=== PATIENT | male | born 1965 | race Caucasian/White ===

== ENCOUNTER 2016-08-17 16:10 | Inpatient (IN) | payer BC ==
[~2016-08-17] VITALS: Ht 167.6 cm; Wt 87.1 kg
[2016-08-17 16:15] VITALS: BP_SYST 148
--- NOTE | 2016-08-17 16:25 | NUR ---
Patient to ER bed 3 to gown for evaluation. Side rails up. Report given to Juan CELESTE.
--- NOTE | 2016-08-17 16:30 | NUR ---
Pt states having intermittent abdominal pain in epigastric area, states abd pain worsened today after attempting to eat granola bar. Pt states pain 8/10, denies diarrhea, vomiting, states having nausea since 1200 today. Pt states taking opiate medications due to prior back surgeries. Pt states pain worsens on palpation. Abd round, distended, no structural abnormalities noted on inspection. Pt denies any other complaints.
--- NOTE | 2016-08-17 16:31 | NUR ---
CHARLIE Morgan RN at bedside examining patient.
[2016-08-17] MEDS ORDERED: PANTOPRAZOLE SODIUM 40 MG/VIAL (PROTONIX) IVP ONE (16:45)
[2016-08-17] MEDS ORDERED: ONDANSETRON HCL 4 MG/2 ML VIAL IVP ONE (16:45)
[2016-08-17] MEDS ORDERED: NACL 0.9% 500 ML IV ONE (16:45)
[2016-08-17] MEDS ORDERED: MAG HYDROX/AL HYDROX/SIMETH 30 ML, LIDOCAINE VISCOUS 2% 15ML (PO) 10 ML, BELLADONNA ALK... PO ONE ×3 (16:45)
[2016-08-17] MEDS ORDERED: MAGNESIUM CITRATE 300 ML ORAL SOLUTION PO ONE (17:00)
--- NOTE | 2016-08-17 17:46 | NUR ---
Patient states does not want Mylanta in GI cocktail, Cathy CANO informed, stated okay. Will return to pharmacy.
[2016-08-17 18:29] LABS: BASOPHILS % (AUTO) 0.2 % (0.0-2.0); EOSINOPHILS # (AUTO) 0.2 K/uL (0.0-0.4); EOSINOPHILS % (AUTO) 2.4 % (0.0-4.0); HEMATOCRIT 37.8 % (36-54); HEMOGLOBIN 12.6 g/dL (14.0-18.0); LYMPHOCYTES # (AUTO) 1.7 K/uL (1.0-5.5); LYMPHOCYTES % (AUTO) 20.4 % (20.5-51.5); MEAN CORPUSCULAR HEMOGLOBIN 28 pg (27-31); MEAN CORPUSCULAR HGB CONC 33 % (32-36); MEAN CORPUSCULAR VOLUME 84 fL (79.0-98.0); MONOCYTES # (AUTO) 0.4 K/uL (0.0-1.0); MONOCYTES % (AUTO) 4.3 % (1.7-9.3); NEUTROPHILS # (AUTO) 6.2 K/uL (1.8-7.7); NEUTROPHILS % (AUTO) 72.7 % (40.0-70.0); PLATELET COUNT (AUTO) 276 K/uL (130-430); RED BLOOD CELL COUNT(AUTO) 4.51 MIL/uL (4.2-6.2); RED CELL DISTRIBUTION WIDTH 13.2 % (9.0-15.0); WHITE BLOOD COUNT (AUTO) 8.5 K/uL (4.8-10.8)
--- NOTE | 2016-08-17 18:30 | NUR ---
pt stable, no distress noted.
[2016-08-17 18:48] LABS: CALCIUM 8.8 mg/dL (8.4-11.0); CREATININE 0.83 mg/dL (0.55-1.30); POTASSIUM 3.8 mmol/L (3.5-5.1)
[2016-08-17 18:56] LABS: ALBUMIN 3.5 g/dL (3.4-4.8); TOTAL BILIRUBIN 0.2 mg/dL (0.0-1.0); TOTAL PROTEIN, SERUM 7.1 g/dL (6.4-8.3)
[2016-08-17] MEDS ORDERED: MORPHINE 4 MG/ML INJ. SYRINGE IVP ONE (19:15)
[2016-08-17] MEDS ORDERED: ASPIRIN 81 MG TAB.CHEW PO ONE (20:00)
[2016-08-17] MEDS ORDERED: HYDR-3698 PO (20:01)
[2016-08-17] MEDS ORDERED: ASPI81TA2 PO (20:01)
[2016-08-17] MEDS ORDERED: HYDR-2472 PO (20:01)
[2016-08-17] MEDS ORDERED: PRAM0.253 PO (20:01)
[2016-08-17] MEDS ORDERED: DIPH25CA83 PO (20:01)
[2016-08-17] MEDS ORDERED: GABA-776 PO (20:01)
[2016-08-17] MEDS ORDERED: DOCU250C PO (20:01)
[2016-08-17] MEDS ORDERED: DULO60CA41 PO (20:01)
[2016-08-17] MEDS ORDERED: CAT.1 PO (20:01)
[2016-08-17] MEDS ORDERED: OXYC27CA PO (20:01)
[2016-08-17] MEDS ORDERED: BACL20TA PO (20:01)
[2016-08-17] MEDS ORDERED: MONT10TA25 PO (20:01)
[2016-08-17] MEDS ORDERED: MORPHINE 2 MG/ML INJ. SYRINGE IVP ONE (20:15)
--- NOTE | 2016-08-17 20:32 | NUR ---
ADMISSION NOTE Received patient from ER via viji, received report from Jennifer CELESTE. Patient admitted with diagnosis of chest pain. Patient oriented to hospital routine, call light, toileting and safety-patient verbalized understanding.
--- NOTE | 2016-08-17 20:32 | NUR ---
Patient will be admitted to care of Dr. Desai. Admitted to Telemetry unit. Will go to room 108 A. Belongings list completed. Summary report printed. Report will be given at bedside to BOOKER Cole.
--- NOTE | 2016-08-17 20:35 | NUR ---
initial nursing notes: Patient awake in bed. Patient has an IV access on the right forearm. Patient denies of having pain at this time.
--- NOTE | 2016-08-17 20:38 | NUR ---
CONSULTATION PAGED REASON FOR CONSULTATION:CHEST PAIN WAS CONSULT CALLED?Y PERSON WHO WAS NOTIFIED:[facility] CONSULTING PHYSICIAN:DARWIN LÓPEZ (SARI YBARRA MOLASSES AND CARAMEL OPERATOR) REVENUE CYCLE ADMINISTRATOR SPECIALTY:CARDIO REVENUE CYCLE ADMINISTRATOR PHONE NUMBER:[phone]
[2016-08-17 21:24] VITALS: BP_SYST 151
[2016-08-17] MEDS ORDERED: MORPHINE 2 MG/ML INJ. SYRINGE IVP PRN (21:45)
--- NOTE | 2016-08-17 22:35 | NUR ---
nursing rounds: Patient received pain medication for epigastric pain. Medication was effective. Patient is resting on the chair. Patient states that he wants to see a case monitor in the morning to discuss about signing a document to make his status "DNR".
[2016-08-18 00:25] VITALS: BP_SYST 128
--- NOTE | 2016-08-18 00:35 | NUR ---
nursing rounds: Patient is resting on the chair. Patient states that laying down in bed makes his epigastric pain worse.
[2016-08-18] MEDS: MORPHINE 2 MG/ML INJ. SYRINGE IVP PRN ×7 (01:30→21:38)
--- NOTE | 2016-08-18 02:35 | NUR ---
nursing rounds: Patient received pain medication for epigastric pain. Patient stated that the medication was effective.
[2016-08-18 04:00] VITALS: BP_SYST 128
--- NOTE | 2016-08-18 04:35 | NUR ---
nursing rounds: Patient is resting on the chair. Patient has no shortness of breath.
--- NOTE | 2016-08-18 06:10 | NUR ---
nursing rounds: Patient received another dose of pain medication for epigastric pain. Patient stated that the medication was effective.
--- NOTE | 2016-08-18 07:42 | NUR ---
closing nursing notes: Patient is awake, alert and oriented X 4. Patient is in no acute respiratory distress. No episodes of fall and no injuries throughout the shift supervisor film processing. Provided nursing report to incoming morning shift nurse, BOOKER Bahena, at patient's bedside.
[2016-08-18] MEDS ORDERED: SUCRALFATE 1 GM TABLET PO ONE (08:15)
--- NOTE | 2016-08-18 08:35 | NUR ---
GI CONSULT Spoke with Faina regarding request for consultation with Dr. Alonzo ([phone]) for reason: abdominal pain.
--- NOTE | 2016-08-18 09:30 | NUR ---
Call from Dr Alonzo consent for EGD. and keep NPO.
[2016-08-18] MEDS: ASPIRIN 325 MG TABLET (ECOTRIN) PO SCH (09:36)
[2016-08-18] MEDS: PANTOPRAZOLE SODIUM 40 MG/VIAL (PROTONIX) IVP SCH ×3 (09:36→21:02)
--- NOTE | 2016-08-18 09:50 | NUR ---
Notified dr Doe who was still at the station re pts arm turning red after morphine administration ivp. to order Benadryl.
--- NOTE | 2016-08-18 09:57 | NUR ---
Dr Alonzo paged re patients concern about being resistant to narcotics and is requesting anesthesiology to be present for EGD. Waiting for call back. Addendum: 08/18/16 at 1058 by Shruti Guerrero RN dR Alonzo cALLED BACK AND NOTIFIED HIM OF THE PATIENTS CONCERN RE SEDATION.
[2016-08-18] MEDS: DIPHENHYDRAMINE INJ 50 MG/ML VIAL IVP PRN (10:20)
[2016-08-18 12:21] VITALS: BP_SYST 142
--- NOTE | 2016-08-18 12:26 | NUR ---
Rounds Patient resting in chair, abd pain 6/1o. PRN medication administered. No redness noted on arm this time. call light in reach
--- NOTE | 2016-08-18 14:15 | NUR ---
Dr Sparks at bedside. Patient gave informed consent for anesthesia as well as the EGD after speaking to .
--- NOTE | 2016-08-18 14:34 | NUR ---
Patient transported out to EGD under general anesthesia
[2016-08-18] MEDS ORDERED: SIMETHICONE 40 MG/0.6 ML ML ONE (14:52)
--- NOTE | 2016-08-18 15:55 | NUR ---
PATIENT BACK TO ROOM. RECEIVED REPORT FROM HUSSEIN CELESTE. Patient states everything went "so smoothly, I just wish i would have stayed comatose a little bit longer. " Patient complaining of pain 11/05. Will reassess. VSS
[2016-08-18 16:00] VITALS: BP_SYST 153
--- NOTE | 2016-08-18 16:25 | NUR ---
Patient calling for pain medication. 09/05 at this time says its is still hurting since post OP, though not as bad. Pt requesting his morphine IVP. Pt placed back on the monitor as the leads were off.
[2016-08-18] MEDS: SUCRALFATE 1 GM TABLET PO SCH (17:58)
--- NOTE | 2016-08-18 19:39 | NUR ---
PAIN PT. A/OX4, VITAL SIGNS STABLE, PT. IS SITTING UP IN CHAIR AT THIS TIME, PT. C/O GENERALIZED ABDOMINAL ACHING PAIN RATED 6/10, MORPHINE 2 MG IVP GIVEN ORDERED, UPDATED WITH PLAN OF CARE, ENCOURAGED PT. TO USE CALL LIGHT FOR ASSISTANCE, CALL LIGHT WITHIN REACH.
[2016-08-18 20:05] VITALS: BP_SYST 140
--- NOTE | 2016-08-18 21:10 | NUR ---
DR. JAMES SPOKE WITH DR. JAMES, MADE AWARE PT. IS ASKING IF HE IS STILL GOING TO HAVE A CT ABDOMEN FOR TOMORROW, DR. JAMES SAID YES AND GAVE ORDERS FOR CT ABDOMEN AND PELVIS WITH CONTRAST AND NPO AFTER MIDNIGHT, PT. ALSO ASKED FOR PROBIOTIC AND ANTI NAUSEA MEDICATION, DR. JAMES ORDERED CULTURELLE 1 CAP BID AND ZOFRAN 4 MG IVP Q6P.
[2016-08-18] MEDS: LACTOBACILLUS RHAMNOSUS GG 1 CAP CAPSULE PO SCH (21:38)
--- NOTE | 2016-08-18 23:05 | NUR ---
PAGED PAGED KENNY EAGLE AT [phone] SPOKE WITH TEDDY.
--- NOTE | 2016-08-18 23:09 | NUR ---
DR. KANG SPOKE WITH DR. KANG, MADE AWARE PT. IS COMPLAINING OF SEVERE EPIGASTRIC PAIN RATED 9/10, RECEIVED ORDER FOR MORPHINE 3 MG IVP Q4P FOR SEVERE PAIN.
[2016-08-18] MEDS ORDERED: MORPHINE 4 MG/ML INJ. SYRINGE IVP PRN (23:30)
[2016-08-19 00:08] VITALS: BP_SYST 128
--- NOTE | 2016-08-19 01:00 | NUR ---
RN ROUNDS PT. RESTING QUIETLY, VITAL SIGNS STABLE, NO DISTRESS NOTED, NO S/S OF PAIN OR DISCOMFORT, CALL LIGHT WITHIN REACH.
[2016-08-19] MEDS: MORPHINE 2 MG/ML INJ. SYRINGE IVP PRN (01:43)
--- NOTE | 2016-08-19 03:00 | NUR ---
RN ROUNDS PT. RESTING QUIETLY, VITAL SIGNS STABLE, NO DISTRESS NOTED, NO S/S OF PAIN OR DISCOMFORT, CALL LIGHT WITHIN REACH.
--- NOTE | 2016-08-19 03:26 | NUR ---
PAGED PAGED KENNY EAGLE AT [phone] SPOKE WITH DOREEN.
--- NOTE | 2016-08-19 03:37 | NUR ---
DR. KANG PAGED AND SPOKE WITH DR. KANG, PT. IS COMPLAINING THAT HIS PAIN IS "GETTING INCREASINGLY WORSE FROM LAST NIGHT", PT. ALSO STATED "MORPHINE IS NOT WORKING, I WANT MORPHINE LOCAL INTERMODAL TRUCK DRIVER WITH A BASAL RATE OF 2 MG, AND DR. KANG CAN FILL OUT THE REST. I ALSO WANT A STAT CXR FOR MY HISTORY OF ASTHMA." DR. KANG SAID NO TO THE LOCAL INTERMODAL TRUCK DRIVER MORPHINE, AND ORDERED DILAUDID 1 MG IVP Q3P FOR MODERATE PAIN 4-6, AND DILAUDID 2 MG IVP Q3P FOR SEVERE PAIN 7-10, DISCONTINUE ALL ORDERS FOR MORPHINE. DR. KANG ALSO ORDERED STAT CXR AND CONSULT WITH DR. VERA FOR PAIN MANAGEMENT.
--- NOTE | 2016-08-19 03:37 | NUR ---
CONSULTATION PAGED REASON FOR CONSULTATION:CHEST PAIN WAS CONSULT CALLED?Y PERSON WHO WAS NOTIFIED:[facility] CONSULTING PHYSICIAN:JEF ESCALANTE BAROMETERS CALIBRATOR SPECIALTY:PAIN MANAGMENT BAROMETERS CALIBRATOR PHONE NUMBER:[phone]
[2016-08-19] MEDS ORDERED: HYDROmorphone 2 MG/ML VIAL ONE (04:10)
--- NOTE | 2016-08-19 05:02 | NUR ---
RN ROUNDS PT. RESTING QUIETLY, VITAL SIGNS STABLE, NO DISTRESS NOTED, NO S/S OF PAIN OR DISCOMFORT, CALL LIGHT WITHIN REACH.
[2016-08-19] MEDS: HYDROmorphone 1 MG INJ. 1 MG/ML AMPUL IVP PRN ×2 (05:56→21:28)
--- NOTE | 2016-08-19 05:56 | NUR ---
PAIN PT. C/O GENERALIZED PAIN RATED 6/10, DILAUDID 1 MG IVP GIVEN ORDERED. VITAL SIGNS STABLE, CALL LIGHT WITHIN REACH.
[2016-08-19] MEDS: SUCRALFATE 1 GM TABLET PO SCH ×2 (06:32→17:51)
--- NOTE | 2016-08-19 06:45 | NUR ---
CLOSING NOTES PT. RESTING QUIETLY, NO DISTRESS NOTED, NO S/S OF PAIN OR DISCOMFORT. CALL LIGHT WITHIN REACH.
[2016-08-19 07:29] LABS: BILIRUBIN,DIRECT 0.2 mg/dL (0.0-0.3); TOTAL BILIRUBIN 0.4 mg/dL (0.0-1.0); TOTAL PROTEIN, SERUM 7.2 g/dL (6.4-8.3)
--- NOTE | 2016-08-19 07:50 | NUR ---
am rounds: patient sitting on the chair. report given by night nurse valorie. nothing per mouth and patient verbalized understanding.for ct scan of abdomen/pelvis with iv contrast today. pain level 4/10,instructed to call rn for pain meds if needed. stable.
[2016-08-19] MEDS ORDERED: DIATR MEGLU/DIATRIZ SOD 30 ML SOLUTION PO ONE (08:02)
[2016-08-19 08:11] VITALS: BP_SYST 150
[2016-08-19] MEDS: PANTOPRAZOLE SODIUM 40 MG/VIAL (PROTONIX) IVP SCH ×2 (08:13→20:40)
[2016-08-19] MEDS ORDERED: IOHEXOL 100 ML IV ONE (08:15)
[2016-08-19] MEDS: HYDROmorphone 2 MG/ML VIAL IVP PRN ×4 (08:28→17:51)
--- NOTE | 2016-08-19 08:42 | NUR ---
pain meds: c/o mid pressure pain ,radiating to the back,due iv pain meds given per request.
--- NOTE | 2016-08-19 09:17 | NUR ---
radiology: patient was brought to radiology by tech via wheelchair in stable condition.
--- NOTE | 2016-08-19 09:55 | NUR ---
rounds: patient sitting on the chair back from radiology. stable.
[2016-08-19] MEDS: LACTOBACILLUS RHAMNOSUS GG 1 CAP CAPSULE PO SCH ×2 (11:37→21:28)
[2016-08-19] MEDS: ASPIRIN 325 MG TABLET (ECOTRIN) PO SCH (11:37)
--- NOTE | 2016-08-19 11:43 | NUR ---
PAIN MEDS: C/O MID RADIATING TO THE BACK PAIN AND DUE IV PAIN MEDS GIVEN PER REQUEST.
[2016-08-19 12:14] VITALS: BP_SYST 135
--- NOTE | 2016-08-19 13:41 | NUR ---
ROUNDS; PATIENT AMBULATING IN THE ROOM. FELT A LITTLE BETTER,TOLERATED THE APPLE JUICE.
[2016-08-19] MEDS: ONDANSETRON HCL 4 MG/2 ML VIAL IVP PRN ×2 (14:54→20:40)
--- NOTE | 2016-08-19 14:57 | NUR ---
pain meds: c/o generalized pain and due iv pain meds given per request.due iv Zofran given per pt's request.
--- NOTE | 2016-08-19 15:15 | NUR ---
rounds: resting. stable.
--- NOTE | 2016-08-19 16:12 | NUR ---
Social Service Note: Pt referred to social media developer by casework supervisor; BAR ASSISTANT met with pt at bedside. Please see psychosocial assessment for further information. Pt was provided with POLST form, advanced directive, and caregiving brochures to assist with caring for pt's parents at home. BAR ASSISTANT will remain available for support and will follow up as needed.
[2016-08-19 16:37] VITALS: BP_SYST 143
--- NOTE | 2016-08-19 17:59 | NUR ---
PAIN MEDS: C/O MID ABDOMINAL PAIN AND DUE IV PAIN MEDS GIVEN PER REQUEST. DILAUDID IV GIVEN BUT DURING THE MIDDLE OF IVP PATIENT REQUESTED TO JUST HAVE HALF OF THE VIAL GIVEN ,THE REST OF DILAUDID WASTED WITH BOOKER GILMORE.
--- NOTE | 2016-08-19 18:41 | NUR ---
closing notes: patient ambulating in the room. patient stated feels better this time. continue to monitor.
--- NOTE | 2016-08-19 19:50 | NUR ---
OPENING NOTES PATIENT IS A/OX4. NO SIGNS OF DISTRESS. BREATHING IS NON LABORED. VITAL SIGNS ARE STABLE. IV IS PATENT. PATIENT HR=48. PATIENT IS ASYMPTOMATIC. PATIENT HAS PAIN OF 6/10. PATIENT DOESN'T WANT PAIN MEDICATION AT THIS TIME. PATIENT LISANDRO CHEST PAIN. PAIN IS IN THE STOMACH. PATIENT INSTRUCTED TO CALL FOR ASSISTANCE. PATIENT VERBALIZED UNDERSTANDING. CALL LIGHT IS WITHIN REACH. WILL CONTINUE TO MONITOR.
--- NOTE | 2016-08-19 20:00 | NUR ---
PATIENT REQUESTED FLUIDS PATIENT STATED THAT HE BELIEVES HE IS DEHYDRATED. PATIENT REQUESTED FLUIDS. WILL NOTIFY .
[2016-08-19 20:07] VITALS: BP_SYST 155
--- NOTE | 2016-08-19 20:14 | NUR ---
COMMUNICATION WITH DR. KANG SPOKE WITH . WILL INPUT NEW ORDERS. Addendum: 08/19/16 at 5916 by Jennifer Ragland RN MD FERNANDO D5/ 1/2 NS AT 70ML/HR
[2016-08-19] MEDS: D5/0.45 NS 1,000 ML IV SCH (20:40)
--- NOTE | 2016-08-19 21:15 | NUR ---
PAIN PATIENT HAS COMPLAINTS OF MIDEPIGASTRIC PAIN. PATIENT DENIES CHEST PAIN. WILL GIVE PRN PAIN MEDICATION.
--- NOTE | 2016-08-19 22:48 | NUR ---
ROUNDS PATIENT IS IN BED RESTING COMFORTABLY. NO SIGNS OF DISTRESS. BREATHING IS NON LABORED. CALL LIGHT IS WITHIN REACH. SAFETY MEASURES ARE IN PLACE. PATIENT REFUSED BED ALARM. WILL CONTINUE TO MONITOR.
[2016-08-19 23:39] VITALS: BP_SYST 148
--- NOTE | 2016-08-20 01:00 | NUR ---
ROUNDS PATIENT IS IN BED SLEEPING COMFORTABLY. NO SIGNS OF DISTRESS. BREATHING IS NON LABORED. WILL CONTINUE TO MONITOR. CALL LIGHT IS WITHIN REACH. SAFETY MEASURES ARE IN PLACE. WILL CONTINUE TO MONITOR.
--- NOTE | 2016-08-20 03:05 | NUR ---
ROUNDS PATIENT IS IN BED SLEEPING. NO SIGNS OF DISTRESS. BREATHING IS NON LABORED. CALL LIGHT IS WITHIN REACH. SAFETY MEASURES ARE IN PLACE. WILL CONTINUE TO MONITOR.
[2016-08-20] MEDS: ONDANSETRON HCL 4 MG/2 ML VIAL IVP PRN ×3 (03:26→16:20)
[2016-08-20] MEDS: HYDROmorphone 1 MG INJ. 1 MG/ML AMPUL IVP PRN ×6 (03:27→19:51)
[2016-08-20 03:58] VITALS: BP_SYST 158
--- NOTE | 2016-08-20 05:28 | NUR ---
ROUNDS PATIENT IS SITTING IN RECLINER CHAIR SLEEPING. NO SIGNS OF DISTRESS. BREATHING IS NON LABORED. CALL LIGHT IS NEXT TO PATIENT ON DRAPED ON IV POLE. SAFETY MEASURES ARE IN PLACE. WILL CONTINUE TO MONITOR.
--- NOTE | 2016-08-20 06:41 | NUR ---
CLOSING NOTES PATIENT IS THE RECLINER CHAIR SLEEPING. NO SIGNS OF DISTRESS. BREATHING IS NONLABORED. IV IS PATENT. CALL LIGHT DRAPED OVER IV POLE AND IS WITHIN REACH OF PATIENT. SAFETY MEASURES ARE IN PLACE. WILL ENDORSE ALL CARE TO THE MORNING NURSE.
[2016-08-20] MEDS: SUCRALFATE 1 GM TABLET PO SCH ×2 (07:48→16:21)
[2016-08-20 07:50] VITALS: BP_SYST 143
--- NOTE | 2016-08-20 07:57 | NUR ---
am rounds: report given at bedside. patient sitting on the chair. ivf on going at right forearm intact. no respiratory distress noted. vital signs taken,afebrile. sinus mike,asymptomatic.
--- NOTE | 2016-08-20 08:00 | NUR ---
pain meds: c/o epigastric pain and due iv pain meds given per request.
[2016-08-20] MEDS: ASPIRIN 325 MG TABLET (ECOTRIN) PO SCH (09:00)
[2016-08-20] MEDS: PANTOPRAZOLE SODIUM 40 MG/VIAL (PROTONIX) IVP SCH ×2 (09:31→20:07)
[2016-08-20] MEDS: LACTOBACILLUS RHAMNOSUS GG 1 CAP CAPSULE PO SCH ×2 (09:31→20:07)
--- NOTE | 2016-08-20 09:37 | NUR ---
ROUNDS: TOOK MORNING MEDS EXCEPT FOR ASA 325MG PO ,PATIENT STATED DOES NOT THINK HE NEEDS THIS MUCH DOSE.MD WILL BE INFORM.
--- NOTE | 2016-08-20 10:50 | NUR ---
pain meds: c/o generalized pain and due iv pain meds given per request.
[2016-08-20] MEDS: D5/0.45 NS 1,000 ML IV SCH (10:56)
[2016-08-20 10:57] VITALS: BP_SYST 126
--- NOTE | 2016-08-20 13:44 | NUR ---
pain meds: c/o epigastric pain and due iv pain meds given per request.
--- NOTE | 2016-08-20 14:03 | NUR ---
ATTENDING , DR KANG CALLED, RE: STOOL SOFTENER, PREFERABLY, COLACE AND MIRALEX. SPOKE TO KENDALL
[2016-08-20] MEDS ORDERED: POLYETHYLENE GLYCOL 3350, 17 GM/ POWD.PACK PO ONE (14:15)
--- NOTE | 2016-08-20 15:05 | NUR ---
rounds: sitting on the chair. stable.
[2016-08-20 16:19] VITALS: BP_SYST 130
--- NOTE | 2016-08-20 16:37 | NUR ---
PAIN MEDS: C/O EPIGASTRIC PAIN AND DUE IV PAIN MEDS GIVEN.
--- NOTE | 2016-08-20 18:04 | NUR ---
ROUNDS: PATIENT AMBULATING IN THE HALLWAY. STABLE.
--- NOTE | 2016-08-20 18:56 | NUR ---
CLOSING NOTES: PATIENT SITTING ON THE CHAIR. TOLERATED CLEAR LIQUID . STABLE.
--- NOTE | 2016-08-20 18:57 | NUR ---
GI ORDER: PATIENT SEEN BY DR JAMES WITH ORDERS FOR GASTRIC EMPTYING STUDY IN AM,NPO POST MIDNIGHT PER [facility] TECH.
[2016-08-20 20:00] VITALS: BP_SYST 135
--- NOTE | 2016-08-20 20:00 | NUR ---
Initial Notes Received patient sitting up in chair, awake, alert, oriented. Patient denies any acute distress at this time. Vital signs stable. Breathing even and unlabored on room air. IV site patent/clean/dry. Medicated patient for pain per MD orders. Educated patient on use of call light for assistance and fall precautions, patient verbalized understanding. Call light in hand, fall precautions in place. Will continue to monitor.
[2016-08-20] MEDS: DOCUSATE SODIUM 250 MG CAPSULE PO SCH (20:07)
[2016-08-20] MEDS: HYDROmorphone 2 MG/ML VIAL IVP PRN (21:23)
--- NOTE | 2016-08-20 22:00 | NUR ---
Rounds Patient resting in chair, awake. Patient denies any acute distress, states pain medication administered is helping. Breathing is even and unlabored. IV site patent/clean/dry. Needs addressed. Call light in hand, will continue to monitor.
[2016-08-21 00:07] VITALS: BP_SYST 127
--- NOTE | 2016-08-21 00:30 | NUR ---
Rounds and Pain medication Patient resting in chair, awake. Patient denies any acute distress. Medicated patient for pain per MD orders. Warm blanket given to patient to provide comfort to aching neck. Needs addressed. Patient verbalized understanding of NPO status for tomorrow diagnostic study. IV site patent/clean/dry. Call light in hand, will continue to monitor.
[2016-08-21] MEDS: HYDROmorphone 2 MG/ML VIAL IVP PRN ×3 (00:37→06:31)
[2016-08-21] MEDS: ONDANSETRON HCL 4 MG/2 ML VIAL IVP PRN ×3 (00:37→14:16)
[2016-08-21] MEDS: D5/0.45 NS 1,000 ML IV SCH (00:43)
--- NOTE | 2016-08-21 02:00 | NUR ---
Rounds Patient resting in chair with eyes closed. No acute distress noted, breathing even and unlabored. IV site patent/clean/dry. Call light in hand, will continue to monitor.
--- NOTE | 2016-08-21 04:13 | NUR ---
Rounds Patient resting in chair with eyes closed, easily aroused. Patient denies any acute distress or pain at this time. Breathing is even and unlabored. IV site patent/clean/dry. Needs addressed. Call light in hand, will continue to monitor
[2016-08-21 04:38] VITALS: BP_SYST 137
[2016-08-21] MEDS: SUCRALFATE 1 GM TABLET PO SCH (06:30)
--- NOTE | 2016-08-21 06:48 | NUR ---
Closing Notes Patient resting in chair, awake. Patient denies any acute distress at this time. Medicated patient for pain per MD orders. Breathing is even and unlabored. IV site patent/clean/dry, no S/S infection/infiltration noted. Needs addressed throughout shift. Call light in hand, fall precautions in place. Will continue to monitor for changes and safety, and endorse all patient care/needs to oncoming nurse.
[2016-08-21] MEDS: DIPHENHYDRAMINE INJ 50 MG/ML VIAL IVP PRN (08:47)
[2016-08-21] MEDS: PANTOPRAZOLE SODIUM 40 MG/VIAL (PROTONIX) IVP SCH (08:48)
[2016-08-21] MEDS: HYDROmorphone 1 MG INJ. 1 MG/ML AMPUL IVP PRN ×2 (08:57→14:17)
[2016-08-21] MEDS ORDERED: POLYETHYLENE GLYCOL 3350, 17 GM/ POWD.PACK PO SCH (09:00)
[2016-08-21] MEDS ORDERED: ASPIRIN 81 MG TAB.CHEW PO SCH (09:00)
--- NOTE | 2016-08-21 09:00 | NUR ---
patient to [place]. No signs of distress noted.
--- NOTE | 2016-08-21 11:05 | NUR ---
Patient has returned [facility]. No signs of distress noted.
[2016-08-21 11:41] VITALS: BP_SYST 137
[2016-08-21] MEDS: LACTOBACILLUS RHAMNOSUS GG 1 CAP CAPSULE PO SCH (12:16)
[2016-08-21] MEDS: DOCUSATE SODIUM 250 MG CAPSULE PO SCH (12:16)
--- NOTE | 2016-08-21 13:35 | NUR ---
PATIENT IS HAVING SOFT DIET LUNCH, NO SIGNS OF DISTRESS NOTED.
[2016-08-21 14:47] VITALS: BP_SYST 137
[2016-08-21 15:33] VITALS: BP_SYST 132
--- NOTE | 2016-08-21 15:38 | NUR ---
D/C Patient Patient given medication reconciliation form and D/C instructions. Exit Care provided. Patient verbalized understanding. MD discussed with patient the results and treatment provided. Ambulatory with steady gait for discharge to home. Patient in stable condition, ID band removed. IV catheter removed, intact and dressing applied, no active bleeding.. Patient educated on pain management. All belongings sent with patient.
== END 2016-08-21 15:30 | disposition home or self-care (01) | DRG 392 ==
LOC: SED 16:10 → STU 19:57 → SMU 08-20 15:10
PROVIDERS: ADMIT Internal Medicine Hospice and Palliative Medicine; ATTEND Internal Medicine Hospice and Palliative Medicine
PROC: 0DB98ZX Excision of Duodenum, Via Natural or Artificial Opening Endoscopic, Diagnostic (ICD-10-PCS; principal; 2016-08-18)
PROC: 0DB68ZX Excision of Stomach, Via Natural or Artificial Opening Endoscopic, Diagnostic (ICD-10-PCS; 2016-08-18)
PROC: 0DB58ZX Excision of Esophagus, Via Natural or Artificial Opening Endoscopic, Diagnostic (ICD-10-PCS; 2016-08-18)
DX: K29.50 Unspecified chronic gastritis without bleeding (principal); F11.20 Opioid dependence, uncomplicated; K52.9 Noninfective gastroenteritis and colitis, unspecified; R07.89 Other chest pain; G25.81 Restless legs syndrome; I10 Essential (primary) hypertension; F17.200 Nicotine dependence, unspecified, uncomplicated; K21.9 Gastro-esophageal reflux disease without esophagitis; J45.909 Unspecified asthma, uncomplicated; F32.9 Major depressive disorder, single episode, unspecified; G47.30 Sleep apnea, unspecified; R00.1 Bradycardia, unspecified; M19.90 Unspecified osteoarthritis, unspecified site; M54.2 Cervicalgia; G89.4 Chronic pain syndrome; M54.9 Dorsalgia, unspecified; K44.9 Diaphragmatic hernia without obstruction or gangrene; K22.2 Esophageal obstruction; Z79.82 Long term (current) use of aspirin; Z79.899 Other long term (current) drug therapy; Z98.1 Arthrodesis status
CPT/HCPCS: 36415; 71010; 74000-TC; 76700-TC; 78264-TC; 80053; 80076; 83690-TC; 84484; 85025; 87081; 88305; 88312; 88313; 93005; 93306; 96374; 96375; 96376; 99285; A9541; C9113; J1170; J1200; J2001; J2270; J2405; J7040; Q9964; Q9967